=== PATIENT | male | born 1990 | race Caucasian/White ===

== ENCOUNTER 2018-03-13 09:47 | Day surgery (SDC) | payer MEDICAID, SELFPAY ==
--- NOTE | 2018-03-12 08:53 | EKG12_ITS ---
Test Reason : Blood Pressure : / mmHG Vent. Rate : 060 BPM Atrial Rate : 060 BPM P-R Int : 152 ms QRS Dur : 086 ms QT Int : 384 ms P-R-T Axes : 034 044 024 degrees QTc Int : 384 ms Normal sinus rhythm Normal ECG Confirmed by KEM QUEVEDO, LAINA ([id number]), marketing editor [employer] [place] ([id number] on 03/13/2018 11:34:32 AM Referred By: Maxime Cochran Confirmed By:LAINA BROWNLEE MD
[2018-03-12 09:46] LABS: Hematocrit 43.4 % (40-54); Hemoglobin 14.9 g/dl (13.0-16.5); Mean Corp Hgb Conc 34.3 g/gl (32-36); Mean Corpuscular Volume 93.1 fL (80-94); Platelet Count 235 K/mm3 (150-450); RBC Distribution Width CV 12.7 % (11.6-14.6); Red Blood Count 4.66 M/mm3 (4.6-6.2); White Blood Count 4.8 K/mm3 (4.4-11.0)
[2018-03-12 09:47] LABS: Scan Indicated on CBC? Y/N NO
[2018-03-12 09:56] LABS: Partial Thromboplast Time 24.7 Seconds (24.1-36.2); Prothrombin Time (Protime)PT. 12.9 SECONDS (11.7-14.9)
[2018-03-12 10:20] LABS: AST(SGOT) 20 U/L (15-37); Alanine Aminotransfer ALT/SGPT 39 U/L (16-61); Albumin, Serum 4.1 g/dL (3.2-5.0); Alkaline Phosphatase 48 U/L (45-117); Anion Gap 7 (5-15); BUN 9 mg/dL (7-18); BUN/Creat Ratio 9.4 RATIO (10-20); Bilirubin, Direct 0.15 mg/dL (0.00-0.30); Calcium,Total 9.2 mg/dL (8.5-10.1); Chloride 104 mmol/L (98-107); Creatinine, Serum 0.96 mg/dL (0.70-1.30); EST Glomerular Filtration Rate 99 mL/min (>60); Est Glom Filt Rate - Afr Amer 120 mL/min (>60); Globulin 3.6 g/dL (2.2-4.2); Glucose 108 mg/dL (74-106); Potassium 4.3 mmol/L (3.5-5.1); Protein, Total 7.7 g/dL (6.4-8.2); Sodium Level 139 mmol/L (136-145)
[2018-03-13] VITALS (7 sets, daily range): BP systolic 106–128; BP diastolic 63–86; PULSE 41–55; RESP 12–16; TEMP 36.4–36.8; O2SAT 49–100; BMI 26.2
[2018-03-13] MEDS: Cefazolin 2 GM in 0.9% Normal Saline 100 ML IV (11:42)
[2018-03-13] MEDS: Bupivacaine Mpf 0.5% 30 ML VIAL (12:00)
--- NOTE | 2018-03-13 12:39 | DCINST_ITS ---
Discharge Diet: Light diet - advance as tolerated Discharge Activity: Return to Normal Activity, May Drive - when you are no longer taking narcotic pain medications., May Shower - with the bandage in place 1-2 days after surgery. Lifting Restrictions: 20 pounds for 8 weeks. Additional Activity Instructions:: Climbing stairs is fine, walking is encouraged. Sitting in bed may be uncomfortable. Sitting up using your lateral muscles (sitting up sideways) is usually more comfortable. Do not drive, work heavy equipment of sign legal documents for 24 hours. If your hernia repair was an ingunial repair, you may have scrotal swelling, an ice pack and/or athletic support can provide more comfort. Pain medications may cause nausea, you should typically eat light foods as you take your pain medications. Pain medications may also cause constipation. If you have difficulty with this, discuss with your doctor. Call your doctor if your incision/area has: Continuous Slow Oozing, Sudden Increased Bleeding, Increased Pain/ Swelling, Increased Redness, Foul Smelling Discharge Call your doctor if you observe: Fever of 101 or Higher Suture Line Care: Avoid Pulling/Pushing, Avoid Pinching/Bending Additional Dressing/Incision Instructions:: Leave the operative bandage on for 2 -3 days. When you remove the bandage, leave the steri-strips on place until your follow up appointment or they fall off. Allergies/Adverse Reactions: Allergies No Known Allergies Allergy (Verified 03/06/18 08:06) Medications to take at Discharge Oxycodone HCl/Acetaminophen [Percocet 5/325] 1 - 2 tab PO Q4H PRN PRN 4 Days # 30 tab 03/13/18 The following prescriptions were given: Oxycodone HCl/Acetaminophen [Percocet 5/325] 1 - 2 tab PO Q4H PRN PRN 4 Days # 30 tab PRN Reason: Pain Primary Care Physician: Oksana Smith, RANULFO-C [Primary Care Provider] - Please Follow Up With: Maxime Cochran MD - [phone] When: Plan to have a follow up appointment in 7 days. Call to schedule.
--- NOTE | 2018-03-13 12:39 | PCM.OPRPT ---
Problem List (1) Ventral hernia without obstruction or gangrene Status: Acute Report of Operation Date of Procedure: 03/13/18 Pre-Operative Diagnosis: k43.9 ventral hernia without obstruction or gangrene Post-Operative Diagnosis: Same Surgery/Procedure Performed:: [id number] laparoscopic repair of ventral hernia with mesh Type of Anesthesia:: General Anesthesiologist: Jaspreet Maher Description of Procedure: Patient was brought into the operating room and placed in the supine position. The abdomen was sterilely prepped and draped in usual fashion. A left flank incision was made varies needle was placed inside the abdomen and the abdomen was insufflated to 15 torr. A #5 Visiport was placed under direct visualization without injury to underlying structures. In the right flank a #5 trocar was placed under direct visualization suprapubically a a 10/12 trocar was placed under direct visualization. I took the hernia sac off and brought it back through the larger port. I dissected down the falciform ligament with the Enseal. Identified the hernia injected local made a small skin tyler place a GraNee needle in here I rolled the Ventra light ST mesh into the abdomen and grabbed the tubing and brought it through the hernia with the use of the GraNee needle. I cut the tubing place it onto the syringe inflated the mesh rolled it so that it was in proper position. I then placed for of the sure strap tacks in all 4 quadrants and several others just to keep the mesh in place I then cut the tubing and brought the balloon out through the 1012 trocar without difficulty the balloon and its contents were all intact. I then spent my time using the secure strap stapling it to the abdominal wall I did have one area that bled and I took staple out and inspected it no further bleeding was identified. I re-tacked all around doing 2 rows of the ruthann. The mesh laid completely flat it looked really good I had excellent hemostasis. I remove the trochars under direct visualization good hemostasis was noted. I closed the 1012 trocar with a figure 8 suture of 0 Vicryl. Incisions were closed with subcuticular stitches of 4-0 Monocryl. Steri-Strips are applied sterile dressings were applied and the patient tolerated the procedure well. - Admit VTE Documentation VTE Present on Admission: No VTE Mechan Device Prophylaxis: SCD's VTE Pharm Prophylaxis ordered?: No Reason prophylaxis not ordered:: Treatment Not Indicated
== END 2018-03-13 14:28 | disposition home or self-care (01) ==
LOC: SDC 09:48 → AC 09:48
PROVIDERS: Family Provider Nurse Practitioner Family; PCP Nurse Practitioner Family; Visit Provider Surgery
PROC: 0WQF4ZZ Repair Abdominal Wall, Percutaneous Endoscopic Approach (ICD-10-PCS; CPT 49652; principal; 2018-03-13 11:40)
DX: K43.9 Ventral hernia without obstruction or gangrene (principal); R01.1 Cardiac murmur, unspecified; F17.210 Nicotine dependence, cigarettes, uncomplicated; F10.20 Alcohol dependence, uncomplicated
CPT/HCPCS: 49652; 36415; 80048; 80076; 85027; 85610; 85730; 93005; J7120; C1760; J2405

== ENCOUNTER → 2018-03-24 09:27 | Outpatient (CLI) | payer MEDICAID, SELFPAY ==
[2018-03-24 10:29] LABS: Cholesterol 252 mg/dL (200); High Density Lipoprotein 88 mg/dL; Triglycerides 74 mg/dL; Very Low Density Lipoprotein 15 mg/dL (5-40)
[2018-03-24 10:35] LABS: Hemoglobin A1c 5.1 % (4.2-6.3)
== END ==
PROVIDERS: Family Provider Nurse Practitioner Family; PCP Nurse Practitioner Family; Visit Provider Nurse Practitioner Family
DX: Z13.220 Encounter for screening for lipoid disorders (principal); R73.01 Impaired fasting glucose
CPT/HCPCS: 36415; 80061; 83036